=== PATIENT | female | born 1980 | race Caucasian/White ===

== ENCOUNTER → 2017-04-07 16:43 | Outpatient (CLI) | payer BC | END | disposition home or self-care (01) | LOC: D.MAMMO 11:00 | DX: N63 Unspecified lump in breast (principal) ==

== ENCOUNTER → 2017-07-20 15:06 | Outpatient (CLI) | payer BC | END | disposition home or self-care (01) | LOC: D.CT 15:06 | DX: R06.02 Shortness of breath (principal); R07.89 Other chest pain ==

== ENCOUNTER → 2018-01-03 08:52 | Outpatient (CLI) | payer BC | END | disposition home or self-care (01) | LOC: D.MRI 01-02 08:30 | DX: S83.242D Other tear of medial meniscus, current injury, left knee, subsequent encounter (principal) ==

== ENCOUNTER → 2018-08-28 09:55 | Outpatient (CLI) | payer BC | END | disposition home or self-care (01) | LOC: D.RAD 09:55 | DX: R07.89 Other chest pain (principal) ==

== ENCOUNTER → 2018-09-19 19:34 | Outpatient (CLI) | payer BC | END | disposition home or self-care (01) | LOC: D.MAMMO 10:00 | DX: Z12.31 Encounter for screening mammogram for malignant neoplasm of breast (principal) ==

== ENCOUNTER 2018-12-06 20:35 | Emergency (ER) | payer BC ==
[~2018-12-06] VITALS: Ht 162.6 cm; Wt 68.6 kg
[2018-12-06 20:53] VITALS: Ht 162.6 cm; Wt 68.6 kg
[2018-12-06] MEDS ORDERED: LISINOPRIL5 MG (20:54)
[2018-12-06] MEDS ORDERED: TOPROL XL25 MG (20:54)
[2018-12-06] MEDS ORDERED: HYDROCHLOROTH12.5 M1 (20:54)
[2018-12-06] MEDS ORDERED: EMBRIL (20:55)
[2018-12-06] MEDS ORDERED: ADEPEX (20:55)
[2018-12-06] MEDS ORDERED: ARAVA10 MG (20:55)
[2018-12-06 21:48] LABS: BASOPHILS 0.5 % (0-2); EOSINOPHILS 2.2 % (0-7); HEMATOCRIT 38.6 % (36.0-48.0); HEMOGLOBIN 13.1 g/dL (12-16); IMMATURE GRANULOCYTES 0.2 % (0-5); LYMPHOCYTES 55.2 % (15-50); MCH 30.5 pg (26.0-34.0); MCHC 33.9 g/dL (31.0-37.0); MEAN PLATELET VOLUME 8.9 fL (7.4-10.4); MONOCYTES 11.6 % (2-11); NEUTROPHILS 30.3 % (40-80); PLATELET COUNT 238 10x3/uL (130-400); RBC 4.29 10x6/uL (4.00-5.40); RDW 13.2 % (11.5-14.5); WBC 5.9 10x3/uL (4.8-10.8)
[2018-12-06 21:59] LABS: ALBUMIN 3.4 g/dL (3.4-5.0); ALKALINE PHOSPHATASE 57 U/L (46-116); ALT (SGPT) 24 U/L (10-68); BILIRUBIN - TOTAL 1.29 mg/dL (0.2-1.3); CALC OSMOLALITY 282 mosm/kg (275-300); CALCIUM 9.3 mg/dL (8.5-10.1); CARBON DIOXIDE 32.6 mmol/L (21.0-32.0); CHLORIDE - SERUM 103 mmol/L (98-107); CREATININE - SERUM 0.8 mg/dL (0.6-1.3); GLUCOSE 116 mg/dL (74-106); POTASSIUM - SERUM 3.3 mmol/L (3.5-5.1); PROTEIN - SERUM 6.8 g/dL (6.4-8.2); SODIUM 142 mmol/L (136-145); UREA NITROGEN 11 mg/dL (7-18); eGFR NON AFRICAN AMERICAN 85 mL/min (90-120)
[2018-12-06 22:20] LABS: CKMB 0.1 U/L (0.0-3.6); CREATINE KINASE 59 UL (21-215)
[2018-12-06 22:25] LABS: TROPONIN-I < 0.017 ng/mL (0.000-0.060)
[2018-12-06 23:04] VITALS: BP 142/94
== END 2018-12-06 23:04 | disposition home or self-care (01) ==
LOC: D.ER 20:35
PROVIDERS: Family Medicine
DX: R00.2 Palpitations (principal); T38.0X5A Adverse effect of glucocorticoids and synthetic analogues, initial encounter; Y92.019 Unspecified place in single-family (private) house as the place of occurrence of the external cause; R00.0 Tachycardia, unspecified; I10 Essential (primary) hypertension

== ENCOUNTER 2021-04-05 16:00 | Outpatient (CLI) | payer OTHER ==
[2020-11-26 18:10] VITALS: BMI 30.1
[~2021-04-05 16:00] MED LIST: ADEPEX; ARAVA10 MG; CYMBALTA30 MG PO; EMBRIL; HYDROCHLOROTH12.5 M1; LISINOPRIL5 MG; MAGNESIUM OXID500 MG; METOPROLOL TART25 MG; MOBIC7.5 MG PO; NEURONTIN 300300 MG PO; NEURONTIN600 MG PO; PERCOCET 7.5/321 TAB PO; TOPAMAX50 MG; TOPROL XL25 MG; ULTRAM50 MG; VERAPAMIL HCL40 MG; VITAMIN D325 MC1 PO
== END 2021-04-05 23:59 | disposition home or self-care (01) ==
LOC: D.MAMMO 16:00
PROVIDERS: ATTEND Obstetrics & Gynecology
DX: N64.52 Nipple discharge (principal)